=== PATIENT | female | born 1955 | race Caucasian/White ===

== ENCOUNTER 2017-07-07 06:49 | Inpatient (IN) | payer OTHER ==
[2017-07-03 12:55] LABS: BASOPHILS 0.5 %; BASOPHILS ABSOLUTE 0.05 10/3/uL (0.0-0.16); EOSINOPHILS 1.4 %; EOSINOPHILS ABSOLUTE 0.13 10/3/uL (0.0-0.53); HEMOGLOBIN 15.3 g/dL (12.0-16.0); IMMATURE GRANULOCYTES 0.2 %; IMMATURE GRANULOCYTES ABSOLUTE 0.02 10/3/uL (0.0-0.11); LYMPHOCYTES 30.6 %; LYMPHOCYTES ABSOLUTE 2.86 10/3/uL (0.67-4.30); MEAN CORPUS HGB CONC 32.6 g/dL (32.0-36.0); MEAN CORPUSCULAR HEMOGLOB 27.9 pg (26.0-34.0); MEAN CORPUSCULAR VOLUME 85.8 fL (80-100); MEAN PLATELET VOLUME 11.3 fL (9.2-13.0); MONOCYTES 7.4 %; MONOCYTES ABSOLUTE 0.69 10/3/uL (0.21-1.20); NEUTROPHILS 59.9 %; PLATELET COUNT 225 10/3/uL (150-400); RBC DISTRIBUTION WIDTH 13.9 % (12.0-16.0); RED CELL COUNT 5.48 10/6/uL (4.0-5.6); WHITE BLOOD CELLS 9.4 10/3/uL (4.5-10.5)
[2017-07-03 12:57] LABS: MANUAL DIFF NO %
[2017-07-03 13:02] LABS: PARTIAL THROMBO TIME 26.7 SEC (22.5-37.2); PROTIME (NOT ORD) 12.9 SEC (12.0-14.5)
[2017-07-03 13:36] LABS: A/G RATIO 1.5 (0.7-1.9); ALBUMIN 3.8 G/DL (3.5-5.0); ALKALINE PHOSPHATASE 109 U/L (45-117); BUN (BLOOD UREA NITROGEN) 19 MG/DL (6-23); CHLORIDE, SERUM 107 MMOL/L (96-112); CHOL/HDL RATIO(NOT ORDER) 4.7 (0-5); CHOLESTEROL 232 MG/DL (< 200); CO2 (CARBON DIOXIDE) 25 MMOL/L (24-34); CREATININE 0.76 MG/DL (0.55-1.02); GFR AFRICAN AMERICAN 98 ML/MIN (>=60); GFR NON AFRICAN AMERICAN 85 ML/MIN (>=60); GLOBULIN 2.6 G/DL (2.5-4.1); GLUCOSE, SERUM 92 MG/DL (60-99); HDL CHOLESTEROL 49 MG/DL (> 49); IRON, SERUM 50 MCG/DL (35-150); LDL CHOLESTEROL 164 MG/DL (< 130); NON-HDL CHOLESTEROL 183 MG/DL (< 160); POTASSIUM, SERUM 4.4 MMOL/L (3.5-5.3); SGOT(AST) 17 U/L (5-40); SGPT(ALT) 27 U/L (5-65); SODIUM, SERUM 140 MMOL/L (135-148); TOTAL BILIRUBIN 0.8 MG/DL (0-1.2); TOTAL PROTEIN 6.4 G/DL (6.0-8.5); TRIGLYCERIDE 99 MG/DL (< 150)
[2017-07-03 13:37] LABS: FOLATE 18.7 NG/ML (>5.2)
[2017-07-03 13:46] LABS: ASCORBIC ACID (UR NOT ORDER) 40 (NEG); BILIRUBIN, URINE NEGATIVE (NEG); KETONE, URINE TRACE MG/DL (NEG); LEUKOCYTE ESTERASE(NOT OR NEG (NEG); WBC (NOT ORDERED) (RFLEX) 5 (0-5)
[~2017-07-07] VITALS: Ht 157.5 cm; Wt 122.2 kg
--- NOTE | ~2017-07-07 | HP ---
History And Physical [address] [address] NAME: KIMBERLY NEVES : 57 STATUS : PRE IN PAT#: [id number] AGE: 62 ADM/REG DATE : MR#: [id number] REPORT SERV DATE: 07/04/17 DICTATED BY: ORLY OSBORN DATE: 07/04/17 REPORT STATUS : Draft TRANSCRIBED BY: MODScarlet DATE: 07/04/17 DATE OF ADMISSION: 07/07/2017 CHIEF COMPLAINT: Morbid obesity. HISTORY OF PRESENT ILLNESS: The patient is a pleasant 62-year-old female, who presents for consideration of bariatric surgery, specifically the sleeve gastrectomy, for the treatment of morbid obesity, having a weight of 276.2 pounds and a BMI of 49.7. She has a long history of obesity and has tried multiple attempts at weight loss and her most successful diet. She was able to achieve a 50-pound weight loss and states she adhered to strict diet choices. She has since regained all weight loss back. She has developed multiple comorbidities including arthropathy and GERD and also reports having significant sleeping disturbances including snoring, probably an early indication of sleep apnea. She now would like to proceed with a sleeve gastrectomy. PAST MEDICAL HISTORY: 1. GERD. 2. Arthropathy, specifically bilateral hip and knee pain. 3. Sleep disturbances. PAST SURGICAL HISTORY: 1. Hysterectomy in 1979. 2. Knee arthroscopy in 1999. 3. Sinus surgery in 2000. 4. Right total hip replacement in 2012. 5. Open appendectomy as a child. FAMILY HISTORY: The patient has a significant family history including a father she reports with heart disease, myocardial infarction. Brother, and essential hypertension. Her mother has a significant history of diabetes. SOCIAL HISTORY: The patient is a female, who is self-employed and works through real estate and rental properties. She reports former nicotine use and smoked for approximately 30 years, approximately one-half pack per day. She denies EtOH abuse, but reports social alcohol intake. MEDICATIONS: Claritin-D, and Zantac p.r.n. ALLERGIES: CECLOR. REVIEW OF SYSTEMS: Please refer to HPI. PHYSICAL EXAMINATION: VITAL SIGNS: A 62-year-old female. Height 5 feet 2.5 inches, weight 276.2 pounds, BMI of 49.7. Vital signs are stable. The patient is afebrile. History And Physical [address] [place]. [address] NAME: KIMBERLY NEVES : 57 STATUS : PRE IN PAT#: [id number] AGE: 62 ADM/REG DATE : MR#: [id number] REPORT SERV DATE: 07/04/17 DICTATED BY: ORLY OSBORN DATE: 07/04/17 REPORT STATUS : Draft TRANSCRIBED BY: JARED DATE: 07/04/17 CONSTITUTIONAL: General appearance: Well nourished, morbidly obese, in no acute distress, ambulating normally. HEAD: Pupils are equal, round, and reactive to light. ENT: Within normal limits. NECK: Supple. Trachea midline. No masses. CARDIOVASCULAR: Heart auscultation, regular rate and rhythm. CHEST: No tenderness upon palpation. LUNGS: Respiratory effort, no dyspnea. Auscultation, no wheezes, rales, crackles, or rhonchi. Breath sounds are normal and equal bilaterally. Clear to auscultation. ABDOMEN: No tenderness, guarding, or masses. Abdomen is soft, obese, and nondistended. Bowel sounds are normal. PSYCHIATRIC: Good judgment and insight. Normal mood and affect. Active and alert. Oriented to time, place, and person. LABORATORY DATA: Labs have been completed according to protocol and preadmission testing and are within normal limits for surgery. Her bariatric upper GI study shows no mention of hiatal hernia and is normal. ASSESSMENT AND PLAN: The patient will be admitted inpatient for bariatric surgery, specifically the sleeve gastrectomy, for the treatment of morbid obesity, having a BMI of 49.7 and a weight of 276.2 pounds. According to her current height and weight, she has 163.7 pounds of excess weight. This patient fulfills the National [place] [employer] guidelines for bariatric surgery according to the 1991 consensus, having either BMI of more than 40 kg/sq m or BMI between 35 and 40 kg/sq m with associated comorbidities. She has been overweight for more than five years and has tried to lose weight several times and failed to maintain weight loss despite physician-supervised programs. Surgical weight loss options were presented including the Martín-en-Y gastric bypass, biliopancreatic diversion with duodenal switch, sleeve gastrectomy, and adjustable gastric band. This patient has chosen sleeve gastrectomy surgery because of the features of no need for adjustments, less invasive than the Martín-en-Y gastric bypass, and less risk of infection. The gastric bypass was not an option for this patient because of the invasiveness of the procedure, the associated risk, and the type of complications. The sleeve gastrectomy surgery in our experience can give this patient an average of 50% to 60% of excess weight loss over the next 12 to 18 months. This patient is aware of the risks and complications associated with this procedure, which include staple leak, bleeding, infection, and obstruction, which were discussed in length. Also, this patient understands the importance of followup in order to achieve good results. Finally, this patient has completed comprehensive educational session through [facility]'s multidisciplinary team program and is ready to proceed at this time. HOLA/JARED Orly Panda M.D. / [id number] History And Physical [address] [address] NAME: KIMBERLY NEVES : 57 STATUS : PRE IN PAT#: [id number] AGE: 62 ADM/REG DATE : MR#: [id number] REPORT SERV DATE: 07/04/17 DICTATED BY: ORLY OSBORN DATE: 07/04/17 REPORT STATUS : Draft TRANSCRIBED BY: JARED DATE: 07/04/17 CC: Orly Osborn M.D. UNKNOWN
--- NOTE | ~2017-07-07 | OP ---
Record Of Operation [facility] [address] [place]. [address] NAME: KIMBERLY NEVES : 57 STATUS : ADM IN PAT#: [id number] AGE: 62 ADM/REG DATE : 07/07/17 MR#: [id number] REPORT SERV DATE: 07/07/17 DICTATED BY: ORLY MILLER DATE: 07/07/17 REPORT STATUS : Draft TRANSCRIBED BY: JARED DATE: 07/07/17 DATE OF PROCEDURE: PREOPERATIVE DIAGNOSIS: Morbid obesity. POSTOPERATIVE DIAGNOSIS: Morbid obesity. OPERATION: Laparoscopic sleeve gastrectomy. ANESTHESIA: General endotracheal. COMPLICATIONS: None. INDICATION FOR PROCEDURE: This is a 62-year-old white female with morbid obesity with a BMI of 49.7 and a weight of 276.2 pounds and associated arthropathy and sleep disturbances. DESCRIPTION OF OPERATION: The patient was taken to the operating room, and after adequate general endotracheal anesthesia, was prepped and draped in a sterile manner. A total of 5 trocars were placed in the upper abdomen and carefully we the left lobe of the liver. Identified the left simi of the diaphragm and identified the upper stomach anatomy. We did remove some of the epiphrenic fat pad on top of the stomach using the Harmonic Scalpel. There was a lot of thickness of the fatty tissue around that area. Then we entered the lesser sac at the level of the lower body of the stomach next to the greater curvature and started dissecting the greater curvature all the way up to the fundus and mobilized the fundus all the way up to the left simi, completely dissected the left simi and then mobilized all the posterior adhesions to mobilize the stomach completely and then continued dissection in the greater curvature all the way down to the distal antrum to about 3 cm or so from the pylorus. Then, we introduced a 36-[place] blunt-tip bougie suction catheter all the way down to the distal antrum and put it on suction to delineate well the stomach and started stapling about 5 cm from the pylorus using the [place] automatic stapler with a green load and stapler reinforcement using the SeamGuard. We used a total of 5 staplings from the bottom to the top. Staple line looked intact. There was no evidence of bleeding or oozing. Then, we tacked the greater omentum into the staple line, the top, middle, and lower portion with interrupted Vicryl 2-0 sutures and then removed the calibration tube and we put it in and out to verify there was no evidence of obstruction, then removed the stomach specimen through the 15 mm trocar site after we stretched it with a Carolyne and then closed that fascial defect with an EFX fascial closure device using a Vicryl #0, then removed all the trocars and liver retractor under direct visualization and closed all the incisions with subcuticular Monocryl 4-0. The patient tolerated the procedure well and did not have any problems. HOLA/JARED Orly Morris- Record Of [address] [address] NAME: KIMBERLY NEVES : 57 STATUS : ADM [facility]#: [id number] AGE: 62 ADM/REG DATE : 07/07/17 MR#: [id number] REPORT SERV DATE: 07/07/17 DICTATED BY: ORLY MILLER DATE: 07/07/17 REPORT STATUS : Draft TRANSCRIBED BY: JARED DATE: 07/07/17 Madhav Panda / [id number] CC: Orly Miller M.D.
[~2017-07-07 06:49] MED LIST: *DENIES
[2017-07-08] MEDS ORDERED: SUCR PO (09:31)
== END 2017-07-08 11:14 | disposition home or self-care (01) | DRG 621 ==
LOC: ENRESERVDT → ENRESERVTM → ENRESERV → 2SO 06:49 → PACU 06:49 → SDC/OF 06:49 → PACU 11:31 → 2SO 13:26
PROVIDERS: Surgery
PROC: 0DB64Z3 Excision of Stomach, Percutaneous Endoscopic Approach, Vertical (ICD-10-PCS; principal; 2017-07-07 09:00)
DX: E66.01 Morbid (severe) obesity due to excess calories (principal); G47.30 Sleep apnea, unspecified; Z68.43 Body mass index [BMI] 50.0-59.9, adult; M12.9 Arthropathy, unspecified; K21.9 Gastro-esophageal reflux disease without esophagitis; Z98.890 Other specified postprocedural states; Z82.49 Family history of ischemic heart disease and other diseases of the circulatory system; Z83.3 Family history of diabetes mellitus; Z87.891 Personal history of nicotine dependence; Z88.1 Allergy status to other antibiotic agents
CPT/HCPCS: 74246; 80053; 80061; 81001; 82607; 82746; 83036; 83540; 84443; 85025; 85610; 85730; 88307; 93005; A9270-GY; C9113; J0330; J0690; J2250; J2405; J2710; J2795; J3010